=== PATIENT | female | born 1935 | race Caucasian/White ===

== ENCOUNTER 2019-06-04 12:22 | Emergency (ER) | payer MEDICARE, BC ==
[~2019-06-04] VITALS: Ht 160 cm; Wt 90.9 kg
[~2019-06-04 12:22] MED LIST: AMIO100T3 PO; DABI150C PO; DIO80T PO; FURO40TA4 PO; LEVO25TA2 PO; METF-516 PO; METF500T20 PO; POTA20TA39 PO
[2019-06-04 13:00] LABS: BASOPHILS % (AUTO) 0.6 % (0-1); EOSINOPHILS # (AUTO) 0.1 X10'3 (0-0.9); HEMATOCRIT 38.2 % (35.0-45.0); HEMOGLOBIN 12.5 g/dl (12.0-16.0); LYMPHOCYTES % (AUTO) 28.5 % (21-51); MEAN CORPUSCULAR HEMOGLOBIN 30.8 PG (27.0-31.0); MEAN CORPUSCULAR HGB CONC 32.8 g/dL (33.0-36.5); MEAN CORPUSCULAR VOLUME 93.9 FL (78-98); MEAN PLATELET VOLUME 8.4 FL (7.4-10.4); MONOCYTES # (AUTO) 0.4 X10'3 (0-0.9); MONOCYTES % (AUTO) 5.8 % (2-12); NEUTROPHILS # (AUTO) 4.5 X10'3 (1.8-7.7); NEUTROPHILS % (AUTO) 64.1 % (42-75); PLATELET COUNT 321 X10'3 (140-440); RED BLOOD COUNT 4.07 X10'6 (4.20-5.60); RED CELL DISTRIBUTION WIDTH 15.3 % (11.5-14.5)
[2019-06-04 13:13] LABS: PARTIAL THROMBOPLASTIN TIME 43 SECONDS (22-32)
[2019-06-04 13:16] LABS: ALANINE AMINOTRANSFERASE 18 U/L (12-78); ALBUMIN 3.5 G/DL (3.4-5.0); ALBUMIN/GLOBULIN RATIO 0.8 (1.1-1.5); ALKALINE PHOSPHATASE 69 IU/L (46-116); ANION GAP 11 (8-16); ASPARTATE AMINO TRANSFERASE 20 U/L (10-37); BILIRUBIN,TOTAL 0.5 MG/DL (0.1-1.0); BLOOD UREA NITROGEN 25 MG/DL (7-18); BUN/CREATININE RATIO 25.3 (6.6-38.0); CALCIUM 9.9 MG/DL (8.5-10.1); CHLORIDE 106 MMOL/L (99-107); CREATININE 0.99 MG/DL (0.40-0.90); GLUCOSE 174 MG/DL (70-104); POTASSIUM 3.6 MMOL/L (3.5-5.1); SODIUM 140 MMOL/L (135-145); TOTAL CARBON DIOXIDE 22.8 MMOL/L (24-32); TOTAL PROTEIN 7.9 G/DL (6.4-8.2); eGFR 53 ML/MIN
[2019-06-04] MEDS ORDERED: LEVO125T PO (13:23)
[2019-06-04] MEDS ORDERED: DILT120C95 PO (13:23)
[2019-06-04] MEDS ORDERED: DABI150C PO (13:23)
[2019-06-04] MEDS ORDERED: diltiazem 5mg/ml 5ml inj. IV ONE (14:30)
[2019-06-04] MEDS ORDERED: normal saline 1000ML IV soln IVB ONE (14:30)
--- NOTE | 2019-06-04 14:51 | NUR ---
PT HEART RATE 80S-110 WHEN IN ROOM FOR APPROX 5 MIN, DR MERCEDES INFORMED AND RN INSTRUCTED TO HOLD CARDIZEM AT THIS TIME, ADMIN NS IV FLUID BOLUS PER ORDERS.
--- NOTE | 2019-06-04 15:29 | NUR ---
[facility] TO RESULT IN 15-20 MIN
[2019-06-04 18:13] VITALS: BP 116/52
== END 2019-06-04 18:14 | disposition home or self-care (01) ==
LOC: ER 12:22
DX: I48.20 Chronic atrial fibrillation, unspecified (principal); E86.0 Dehydration; I10 Essential (primary) hypertension; E11.9 Type 2 diabetes mellitus without complications; E03.9 Hypothyroidism, unspecified; G89.29 Other chronic pain; Z91.013 Allergy to seafood; Z79.84 Long term (current) use of oral hypoglycemic drugs; Z79.899 Other long term (current) drug therapy; Z90.710 Acquired absence of both cervix and uterus; Z98.890 Other specified postprocedural states
CPT/HCPCS: 36415; 71045; 80053; 83880; 84484; 85025; 85610; 85730; 93005; 99284; J7040; J3490